=== PATIENT | female | born 1935 | race Caucasian/White ===

== ENCOUNTER → 2018-01-25 | Outpatient (CLI) | payer OTHER ==
[~2018-01-25] MED LIST: ASPIR 8181 MG PO; BYSTOLIC 5 MG5 M1 PO; ETODOLAC 400 M400 M1 PO; HYZAAR 50-12.51 TAB PO; NORVASC5 MG PO; PRILOSEC OTC20 MG PO; SIMVASTATIN40 MG PO; XANAX1 MG PO
== END ==
LOC: M.RAD 11:00
DX: Z12.31 Encounter for screening mammogram for malignant neoplasm of breast (principal)

== ENCOUNTER → 2019-02-28 | Outpatient (CLI) | payer OTHER | LOC: M.RAD 02-10 07:50 | DX: Z12.31 Encounter for screening mammogram for malignant neoplasm of breast (principal) ==

== ENCOUNTER → 2020-05-11 | Outpatient (CLI) | payer OTHER | LOC: M.RAD 08:45 | DX: Z12.31 Encounter for screening mammogram for malignant neoplasm of breast (principal) ==

== ENCOUNTER → 2021-05-17 | Outpatient (CLI) | payer OTHER | LOC: M.RAD 09:59 | DX: Z12.31 Encounter for screening mammogram for malignant neoplasm of breast (principal); N64.89 Other specified disorders of breast ==

== ENCOUNTER → 2021-12-29 | Outpatient (CLI) | payer OTHER ==
[~2021-12-29] VITALS: Ht 157.5 cm; Wt 58.1 kg
[2021-12-29] VITALS (9 sets, daily range): BP systolic 122–138; BP diastolic 48–87
[~2021-12-29] MED LIST changes: +ASA81BEC PO; +B-12 DOTS500 MCG PO; +HYZAAR 100-12.1 EACH PO; +VITAMIN D3250 MC1 PO
[2021-12-29 08:32] LABS: HEMATOCRIT 38.2 % (37.0-47.0); HEMOGLOBIN 12.8 gm/dL (12.0-15.0); MCH 30.6 pg (26.0-34.0); MCHC 33.5 g/dL (28.0-37.0); MCV 91.4 fL (80.0-100.0); MPV 7.2 fl. (7.2-11.1); RBC 4.18 mil/uL (4.20-5.00); RDW-CV 13.8 % (10.5-14.5); WBC 6.1 thou/uL (4.0-11.0)
[2021-12-29 08:41] LABS: ANION GAP 10 mmol/L (7-16); BUN 20 mg/dL (7-18); CALCIUM 9.1 mg/dL (8.5-10.1); CHLORIDE 100 mmol/L (98-107); CO2 26 mmol/L (21-32); CREATININE 1.1 mg/dL (0.6-1.3); GLUCOSE 100 mg/dL (70-99); POTASSIUM 3.7 mmol/L (3.5-5.1); SODIUM 136 mmol/L (136-145)
[2021-12-29 08:45] LABS: APTT 29.7 Seconds (25.0-31.3); PROTIME 10.4 Seconds (9.20-11.50)
[2021-12-29 08:51] LABS: ALBUMIN 4.1 g/dL (3.4-5.0); ALKALINE PHOSPHATASE 115 U/L (46-116); CHOLESTEROL 198 mg/dL (<200); HDL CHOLESTEROL 72 mg/dL (>40); LDL CHOLESTEROL 101 mg/dL (<100); SGOT 27 U/L (15-37); SGPT 29 U/L (30-65); TC:HDL 2.8 Ratio (Not establshd); TOTAL BILIRUBIN 0.7 mg/dL (<0.1-1.0); TOTAL PROTEIN 6.9 g/dL (6.4-8.2); TRIGLYCERIDE 129 mg/dL (<150); VLDL 26 mg/dL (<40)
[2021-12-29 08:53] LABS: SERUM ASSESSMENT Slight Lipemia
--- NOTE | 2021-12-29 09:19 | EKG ---
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: : 1935 Requested By: Raphael Stark Order Number: [id number] Reading MD: Raphael Stark Measurements Intervals [place] Rate: 77 P: 15 NC: 137 QRS: 16 QRSD: 88 T: 54 QT: 413 QTc: 468 Interpretive Statements Sinus rhythm Atrial premature complex Artifact in lead(s) I,III,aVR,aVL,aVF,V1,V3,V4,V5 Compared to ECG 07/12/2016 10:34:21 Atrial premature complex(es) now present Electronically Signed On 12-29-2021 9:19:01 RELATIONS MANAGER by Raphael Stark [email or web address] <ELECTRONICALLY SIGNED> By: Raphael Stark MD, [facility] 12/29/21918 0 0 Raphael Stark MD, [facility] /EPI
--- NOTE | 2021-12-29 17:51 | CARD ---
[address] [address] CARDIAC CATH REPORT Name: NICOLAS TAYLOR [id number] Admission: 12/29/21 Attend Phys: Clinton Caldwell MD Discharge: Date of : 39 Report #: [id number] THIS REPORT FOR: cc: Mahin Daniel Steve T. DO Liston, Michael J. 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 The right femoral was infiltrated with 2% Lidocaine subcutaneous anesthesia. IV conscious sedation was used throughout procedure with appropriate monitoring and was performed in the presence of a registered nurse who was an independent trained observer other than the physician performing the procedure. A Francisco 6 FR sheath was inserted into the right femoral artery. Coronary angiography was performed using coronary diagnostic catheters. The right coronary system was accessed and visualized with a Diagnostic 6 Fr JR 4 catheter. The left coronary system was accessed and visualized with a Diagnostic 6 Fr JL 4 catheter. The left ventricle was accessed and visualized with a Diagnostic 6 Fr Pigtail catheter. Left ventricular/Aortic Valve gradient assessed via catheter pullback. Left ventriculogram was performed in VALLEJO projection. Pre-demployment femoral angiogram was performed . Closure device was deployed with a Fr MynxGrip 6/7F. The patient tolerated the procedure well [place] [address] CARDIAC CATH REPORT Name: NICOLAS TAYLOR Room: [facility]#: [id number] Admission: 12/29/21 Attend Phys: Clinton Caldwell MD Discharge: Date of : 39 Report #: [id number] associated with the procedure. There was no hematoma. Intraoperative Conscious Sedation Sedation start time: 08:47 Case end Time: 08:57 Fentanyl 25 mcg Versed 1 mg Fluoro Time: 2.0 minutes Dose: DAP 71868 cGycm2 199 mGy Contrast Type and Amount: Visipaque 105 mL Diagnostic Cath Left Main There is a short left main that bifurcates into a left anterior sitting and circumflex coronary artery. LAD The proximal LAD shows mild calcification but no significant luminal stenosis. Minimal luminal irregularities. The distal vessel is small in caliber. Diagonal 1 A small first diagonal branch appears normal. Diagonal 2 A small second diagonal branch appears normal. Circumflex Minimal luminal irregularities in the proximal portion of the circumflex. OM1 The circumflex terminates in a large bifurcating obtuse marginal branch that is free of significant disease. Minimal luminal irregularities noted. Right Coronary Minimal plaquing in the proximal right coronary artery. The remainder the vessel is free of significant disease. R PDA A small to moderate caliber PDA is free of significant disease. RPLV A small posterior lateral LV branch has minimal luminal irregularities. Left Ventriculography The left ventricle is normal in size with normal contractility. The left ventricular ejection fraction is estimated to be 65-70%. Hemodynamics The aortic pressure is 134/50 mmHg with a mean of 55 mmHg. The left ventricular pressure is 133/-9 mmHg with a mean of mmHg. The left ventricular end diastolic pressure is 20 mmHg. Conclusion 1. Minimal luminal irregularities without significant stenoses. 2. Mildly elevated left ventricular end-[place] [address] CARDIAC CATH REPORT Name: NICOLAS TAYLOR NE Room: [facility]#: [id number] Admission: 12/29/21 Attend Phys: Clinton Caldwell MD Discharge: Date of : 39 Report #: [id number] 3. Normal left ventricular systolic function. Recommendations 1. Continue medical management and aggressive risk factor modification. <ELECTRONICALLY SIGNED> By: Clinton Caldwell MD, FACC 12/29/211749 49 49Michael Laron Caldwell MD, FAC /INF
== END | disposition home or self-care (01) ==
LOC: M.CRD 06:28 → M.CL 06:29
PROVIDERS: Internal Medicine; ATTEND Internal Medicine Cardiovascular Disease
DX: R07.9 Chest pain, unspecified (principal); I25.10 Atherosclerotic heart disease of native coronary artery without angina pectoris; I10 Essential (primary) hypertension; E78.5 Hyperlipidemia, unspecified; Z98.890 Other specified postprocedural states; Z79.899 Other long term (current) drug therapy; Z96.651 Presence of right artificial knee joint; Z90.49 Acquired absence of other specified parts of digestive tract; Z90.710 Acquired absence of both cervix and uterus; Z20.822 Contact with and (suspected) exposure to COVID-19; Z88.0 Allergy status to penicillin; Z88.2 Allergy status to sulfonamides